=== PATIENT | female | born 1950 | race Caucasian/White ===

== ENCOUNTER 2016-10-02 06:34 | Inpatient (IN) | payer MEDICARE, BC ==
[2016-09-04 08:18] VITALS: Ht 165.1 cm; Wt 76.7 kg
[2016-09-05 16:28] VITALS: BP_SYST 140; RESP 20; TEMP 98.1
[~2016-10-02] VITALS: Ht 165.1 cm; Wt 76.7 kg
[2016-10-02] VITALS (25 sets, daily range): BP systolic 98–164; RESP 15–92; TEMP 97.2–98.9
[2016-10-02] MEDS ORDERED: TRANEXAMIC ACID IV ONE ×4 (06:45)
[2016-10-02] MEDS ORDERED: SODIUM CHLORIDE 0.9% IV ONE ×4 (06:45)
[2016-10-02] MEDS ORDERED: ROPIVACAINE 0.5% 139 MG, EPINEPHrine 1:1,000 0.2 MG, KETOROLAC INJ 30 MG, MORPHINE 10 MG SUBQ ONE ×4 (06:50)
[2016-10-02] MEDS ORDERED: VANCOMYCIN 1,250 MG in SODIUM CHLORIDE 0.9% 250 ML IV ONE (06:50)
[2016-10-02] MEDS ORDERED: LIDOCAINE 1% BUFFERED 1 ML SYR INTRADERM PRN (06:55)
[2016-10-02] MEDS ORDERED: LACT RINGERS 1,000 ML IV SCH (06:55)
[2016-10-02] MEDS ORDERED: NEB-XOPENEX 0.63 MG/3 ML INH ONE (06:55)
[2016-10-02] MEDS ORDERED: METOPROLOL XL 50 MG TAB PO ONE (06:55)
[2016-10-02] MEDS ORDERED: ACETAMINOPHEN 500 MG TAB PO ONE (06:55)
[2016-10-02] MEDS ORDERED: MIDAZOLAM 2 MG/2 ML INJ IV ONE (06:55)
[2016-10-02] MEDS ORDERED: LIDOCAINE 1% MDV 20 ML ONE (08:12)
[2016-10-02] MEDS ORDERED: MIDAZOLAM 2 MG/2 ML INJ ONE (08:13)
[2016-10-02] MEDS ORDERED: MEPERIDINE 25 MG/ML IV ONE (08:15)
[2016-10-02] MEDS: MIDAZOLAM 2 MG/2 ML INJ IV ONE ×2 (08:15→09:07)
[2016-10-02] MEDS ORDERED: DILAUDID 1 MG/ML AMP IV PRN (09:25)
[2016-10-02] MEDS ORDERED: MEPERIDINE 25 MG/ML IV PRN (09:25)
[2016-10-02] MEDS ORDERED: OXYCODONE 5 MG TAB PO PRN (09:25)
[2016-10-02] MEDS ORDERED: MORPHINE 2 MG/ML SYR IV PRN ×2 (09:25→10:30)
[2016-10-02] MEDS ORDERED: ONDANSETRON 4 MG VIAL IV PRN ×2 (09:25→10:30)
[2016-10-02] MEDS ORDERED: MORPHINE 4 MG/ML SYR IV PRN (09:25)
[2016-10-02] MEDS ORDERED: SALINE FLUSH 10 ML FLUSH PRN (10:30)
[2016-10-02] MEDS ORDERED: MAG HYDROX 30 ML UDC PO PRN (10:30)
[2016-10-02] MEDS ORDERED: KETOROLAC 30 MG/ML VIAL IV PRN (10:30)
[2016-10-02] MEDS ORDERED: ONDANSETRON 4 MG TAB PO PRN (10:30)
[2016-10-02] MEDS ORDERED: ZOLPIDEM 5 MG TAB PO PRN (10:30)
[2016-10-02] MEDS ORDERED: GLYCOPYRROLATE 0.2 MG/ML VIAL IV ONE (11:11)
[2016-10-02] MEDS ORDERED: PROPOFOL 20 ML VIAL IV ONE (11:11)
[2016-10-02] MEDS ORDERED: LIDOCAINE 2% SYR 5 ML IV ONE (11:11)
[2016-10-02] MEDS ORDERED: ONDANSETRON 4 MG VIAL IV PUSH ONE (11:11)
[2016-10-02] MEDS ORDERED: ROCURONIUM 50 MG VIAL IV ONE (11:11)
[2016-10-02] MEDS ORDERED: NEOSTIGMINE 10 MG/10 ML VIAL IV ONE (11:11)
[2016-10-02] MEDS ORDERED: FENTANYL 100 MCG/2 ML AMP IV ONE (11:11)
[2016-10-02] MEDS ORDERED: DEXAMETHASONE 4 MG/ML VIAL IV ONE (11:11)
[2016-10-02] MEDS ORDERED: BUPIVACA/EPI 0.5% 50ML NERVEBLOCK ONE (11:15)
[2016-10-02] MEDS: D5-1/2-NS W/KCL 20MEQ/L 1,000 ML IV SCH (11:22)
[2016-10-02] MEDS: PHARMACY TO DOSE VANCOMYCIN IV SCH ×2 (11:25→22:30)
[2016-10-02] MEDS: MULTIVITS/MINERALS (THERAGRAN M) TAB PO SCH (13:00)
[2016-10-02] MEDS ORDERED: BACITRACIN 50,000 UNITS INJ IRRIG ONE (13:50)
[2016-10-02] MEDS: PANTOPRAZOLE 40 MG TAB PO SCH (15:10)
[2016-10-02] MEDS: VALSARTAN 80 MG TAB PO SCH (15:10)
[2016-10-02] MEDS: ALPRAZOLAM 0.25 MG TAB PO SCH ×2 (15:10→21:00)
[2016-10-02] MEDS: SALINE FLUSH 10 ML FLUSH SCH (20:00)
[2016-10-02] MEDS: DOCUSATE SOD 100 MG CAP PO SCH (21:00)
[2016-10-02] MEDS: SENNA 8.6 MG TAB PO SCH (21:00)
[2016-10-02] MEDS: VANCOMYCIN 1,250 MG in SODIUM CHLORIDE 0.9% 250 ML IV SCH (21:00)
[2016-10-02] MEDS: MORPHINE 4 MG/ML SYR IV PRN (22:22)
[2016-10-03] MEDS: MORPHINE 4 MG/ML SYR IV PRN ×3 (02:06→07:29)
[2016-10-03] MEDS: D5-1/2-NS W/KCL 20MEQ/L 1,000 ML IV SCH (02:07)
[2016-10-03] MEDS: FONDAPARINUX 2.5 MG SYR SUBQ SCH (05:59)
[2016-10-03] MEDS: SODIUM CHLORIDE 0.9% FLUSH BAG 500 ML IV SCH (06:00)
[2016-10-03] MEDS: PANTOPRAZOLE 40 MG TAB PO SCH (06:00)
[2016-10-03 07:23] VITALS: BP_SYST 129; RESP 14; TEMP 97.8
[2016-10-03] MEDS: SALINE FLUSH 10 ML FLUSH SCH ×2 (08:00→20:57)
[2016-10-03] MEDS: VANCOMYCIN 1,250 MG in SODIUM CHLORIDE 0.9% 250 ML IV SCH (08:36)
[2016-10-03] MEDS: VALSARTAN 80 MG TAB PO SCH (08:36)
[2016-10-03] MEDS: MAG HYDROX 30 ML UDC PO SCH (08:58)
[2016-10-03] MEDS: DOCUSATE SOD 100 MG CAP PO SCH ×2 (08:58→20:57)
[2016-10-03] MEDS: SENNA 8.6 MG TAB PO SCH ×2 (08:59→20:57)
[2016-10-03] MEDS: MULTIVITS/MINERALS (THERAGRAN M) TAB PO SCH (08:59)
[2016-10-03] MEDS: ALPRAZOLAM 0.25 MG TAB PO SCH ×3 (08:59→20:57)
[2016-10-03] MEDS: POLYETHYLENE GLYCOL 17 GM PACKET PO SCH (08:59)
[2016-10-03 11:31] VITALS: BP_SYST 120; RESP 16; TEMP 97.2
[2016-10-03] MEDS ORDERED: BISACODYL 10 MG SUPP RECTAL PRN (11:55)
[2016-10-03] MEDS ORDERED: FLEET ENEMA 132 ML BTL RECTAL PRN (11:55)
[2016-10-03 15:00] VITALS: BP_SYST 135; RESP 18; TEMP 97.5
[2016-10-03 19:00] VITALS: BP_SYST 143; RESP 18; TEMP 98.3
[2016-10-03 23:00] VITALS: BP_SYST 141; RESP 20; TEMP 98
[2016-10-04 03:00] VITALS: BP_SYST 149; RESP 17; TEMP 98.3
[2016-10-04] MEDS: SODIUM CHLORIDE 0.9% FLUSH BAG 500 ML IV SCH (06:00)
[2016-10-04] MEDS: FONDAPARINUX 2.5 MG SYR SUBQ SCH (06:40)
[2016-10-04] MEDS: PANTOPRAZOLE 40 MG TAB PO SCH (06:40)
[2016-10-04 07:23] VITALS: BP_SYST 143; RESP 16; TEMP 97.2
[2016-10-04] MEDS: SALINE FLUSH 10 ML FLUSH SCH (08:00)
[2016-10-04] MEDS: VALSARTAN 80 MG TAB PO SCH (08:53)
[2016-10-04] MEDS: ALPRAZOLAM 0.25 MG TAB PO SCH (08:53)
[2016-10-04] MEDS: MULTIVITS/MINERALS (THERAGRAN M) TAB PO SCH (08:53)
[2016-10-04] MEDS: DOCUSATE SOD 100 MG CAP PO SCH (08:53)
[2016-10-04] MEDS: MAG HYDROX 30 ML UDC PO SCH (09:00)
[2016-10-04] MEDS: POLYETHYLENE GLYCOL 17 GM PACKET PO SCH (09:00)
[2016-10-04] MEDS: SENNA 8.6 MG TAB PO SCH (09:00)
[2016-10-04 10:24] VITALS: BP_SYST 143; RESP 16; TEMP 97.2
[2016-10-04 11:56] VITALS: BP_SYST 145; RESP 16; TEMP 97.5
== END 2016-10-04 12:33 | disposition home or self-care (01) | DRG 470 ==
LOC: SDS 06:34 → ENPENDDIS 06:34 → 2NO 11:47
PROVIDERS: ADMIT Internal Medicine; ATTEND Internal Medicine
PROC: 0SRD0J9 Replacement of Left Knee Joint with Synthetic Substitute, Cemented, Open Approach (ICD-10-PCS; principal; 2016-10-02 08:03)
DX: M17.12 Unilateral primary osteoarthritis, left knee (principal); I10 Essential (primary) hypertension; E78.5 Hyperlipidemia, unspecified; Z96.641 Presence of right artificial hip joint; Z87.891 Personal history of nicotine dependence; E07.9 Disorder of thyroid, unspecified; J30.2 Other seasonal allergic rhinitis; Z79.82 Long term (current) use of aspirin
CPT/HCPCS: 80048; 85014; 85018; 85025; 86850; 86900; 86901; 94640; 94762; 94799